=== PATIENT | male | born 1995 | race Caucasian/White ===

== ENCOUNTER 2016-07-29 10:45 | Emergency (ER) | payer BC ==
--- NOTE | ~2016-07-29 | CR21 ---
[facility]. [facility] A Service of [facility] RADIOLOGY TEXT RESULTS PATIENT: LUCIANO TANNER LOCATION: SED : [birth year] UNIT #: [id number] AGE: [address]: OLY HENRY SEX: M ORDER DR: [id number] [place] [id number] E MR#: [id number] Acc #: [id number] NAME: LUCIANO TANNER : 1995 SEX: M STUDY DATE/TIME: 07/29/2016 10:56 UNIT: SED ROOM: STUDY DESCRIPTION: CR Ankle Min 3 Views Rt Attending Physician: Oly Henry Ordering Physician: Oly Henry Primary Care Physician: Sweta Primary Care Physician MEDICAL IMAGING REPORT This report is preliminary unless electronic signature is present. EXAM Right ankle 3 views INDICATION Right ankle pain after falling last night. COMPARISON No comparisons. FINDINGS Soft tissue swelling overlying the lateral malleolus. Ankle mortise intact. No acute fracture. IMPRESSION No fracture. Soft tissue swelling overlying the lateral malleolus. Dictated by... Tien Suárez M.D. THIS IS AN ELECTRONICALLY VERIFIED REPORT Tien Suárez M.D. at 07/30/2016 12:35 PM CAMILA/mone TD: 07/29/2016 12:34 JOB #: [id number] MEDICAL IMAGING REPORT Page 1 of 1
[~2016-07-29 10:45] MED LIST: ALBUTEROL17 GM INH; CIPRO PO; FLOMAX0.4 M1 PO; IBUPROFEN800 MG PO; MIRALAX17 GM DOB; NO MEDICATIONS; PHENERGAN25 MG PO; VICODIN 5/1 TAB 5/50 PO
== END 2016-07-29 11:27 | disposition home or self-care (01) ==
LOC: SED 10:45
DX: S93.401A Sprain of unspecified ligament of right ankle, initial encounter (principal); F17.200 Nicotine dependence, unspecified, uncomplicated; X50.1XXA Overexertion from prolonged static or awkward postures, initial encounter; Y92.009 Unspecified place in unspecified non-institutional (private) residence as the place of occurrence of the external cause
CPT/HCPCS: 29515; 73610; 99283